=== PATIENT | female | born 1975 | race Caucasian/White ===

== ENCOUNTER 2018-03-10 21:26 | Inpatient (IN) | payer OTHER ==
[~2018-03-10] VITALS: Ht 162.6 cm; Wt 69.4 kg
[2018-03-10 22:29] LABS: PLATELET COUNT 214 x10^3mcL (130-400); RED CELL DISTRIBUTION WIDTH 14.4 % (11.5-14.5)
[2018-03-10 22:39] LABS: CALCIUM 8.8 mg/dL (8.5-10.1); CARBON DIOXIDE 23.6 mmol/L (21-32); CHLORIDE SERUM 102 mmol/L (98-107); CREATININE SERUM 0.7 mg/dL (0.6-1.0); GFR1 > 60 mL/min; GLUCOSE SERUM 131 mg/dL (74-106); POTASSIUM SERUM 3.4 mmol/L (3.5-5.1); SODIUM SERUM 136 mmol/L (136-145)
[2018-03-10 22:44] LABS: ALBUMIN 3.7 g/dL (3.4-5.0); ALKALINE PHOSPHATASE 60 U/L (46-116); ALT/SGPT 18 U/L (14-59); AMYLASE 51 U/L (25-115); AST/SGOT 13 U/L (15-37); BILIRUBIN TOTAL 1.06 mg/dL (0.20-1.00); LIPASE 92 IU/L (73-393); TOTAL PROTEIN, SERUM 7.6 g/dL (6.4-8.2)
[2018-03-10 23:07] LABS: BAND NEUTROPHIL 5 % (0-10); METAMYELOCTE 5 % (0-2); MONOCYTE 2 % (0-7); MYELOCYTE 1 % (0-2); SEGMENTED NEUTROPHILS 85 % (37-75); rbc morphology (normal/abnorm) NORMAL (NORMAL)
[2018-03-10 23:13] LABS: PLATELET MORPHOLOGY FEW LARGE PLATELETS
[2018-03-11] VITALS (7 sets, daily range): BP systolic 86–101; BP diastolic 47–59; Ht 162.6 cm; Wt 69.4 kg
[2018-03-11 02:10] LABS: FREE T4 0.88 ng/dL (0.76-1.46); FREE THYROXINE INDEX 1.7 ug/dL (1.4-4.5); T3 TOTAL 0.75 ng/mL; T4(THYROXINE) 5.4 ug/dL (4.7-13.3)
[2018-03-11 05:34] LABS: CHOLESTEROL/HDL RATIO 2.9; PHOSPHOROUS 2.9 mg/dL (2.5-4.9)
[2018-03-11 08:02] LABS: UA SPECIFIC GRAVITY >=1.030 (1.005-1.035); microscopic required? YES; urine erythrocyte NEGATIVE (NEGATIVE)
[2018-03-11 08:24] LABS: AMPHETAMINE QUAL UR NONE DETECTED (See below)
[2018-03-12 05:49] VITALS: BP 103/57
[2018-03-12 06:46] LABS: CALCIUM 8.5 mg/dL (8.5-10.1); CARBON DIOXIDE 24.5 mmol/L (21-32); CHLORIDE SERUM 105 mmol/L (98-107); CREATININE SERUM 0.9 mg/dL (0.6-1.0); GFR1 > 60 mL/min; GLUCOSE SERUM 90 mg/dL (74-106); POTASSIUM SERUM 3.7 mmol/L (3.5-5.1); SODIUM SERUM 138 mmol/L (136-145)
[2018-03-12 07:41] LABS: BASOPHIL % 0.3 % (0-2); PLATELET COUNT 205 x10^3mcL (130-400)
[2018-03-12 07:47] LABS: RED CELL DISTRIBUTION WIDTH 15.1 % (11.5-14.5)
[2018-03-12 09:54] VITALS: BP 99/56
[2018-03-12 13:11] VITALS: BP 113/63
[2018-03-12 17:39] VITALS: BP 92/46
[2018-03-12 21:08] VITALS: BP 95/52
[2018-03-13 06:01] VITALS: BP 106/61
[2018-03-13 06:36] LABS: BASOPHIL % 0.5 % (0-2); PLATELET COUNT 197 x10^3mcL (130-400)
[2018-03-13 06:47] LABS: CALCIUM 8.3 mg/dL (8.5-10.1); CARBON DIOXIDE 24.3 mmol/L (21-32); CHLORIDE SERUM 109 mmol/L (98-107); CREATININE SERUM 0.8 mg/dL (0.6-1.0); GFR1 > 60 mL/min; GLUCOSE SERUM 94 mg/dL (74-106); SODIUM SERUM 141 mmol/L (136-145)
[2018-03-13 06:48] LABS: RED CELL DISTRIBUTION WIDTH 15.6 % (11.5-14.5)
[2018-03-13] MEDS ORDERED: CIPROFLOXACIN500 MG PO (07:31)
[2018-03-13] MEDS ORDERED: FLA500 PO (07:32)
[2018-03-13 12:54] VITALS: BP 106/61
[2018-03-13] MEDS ORDERED: TYL325 PO (13:04)
== END 2018-03-13 14:52 | disposition home or self-care (01) | DRG 340 ==
LOC: ED 21:26 → DU 03-11 00:16
PROVIDERS: Emergency Medicine; Family Medicine; Surgery
PROC: 0DTJ4ZZ Resection of Appendix, Percutaneous Endoscopic Approach (ICD-10-PCS; principal; 2018-03-11 07:00)
DX: K35.3 Acute appendicitis with localized peritonitis (principal); E87.6 Hypokalemia; Z83.3 Family history of diabetes mellitus
CPT/HCPCS: 83880; 84439; J0330; J0690; J0694; J1885; J2175; J2250; J2405; J2543; J2704; J2710; J3010; J3490; J7030; J7120; Q0092